=== PATIENT | male | born 1960 | race Caucasian/White ===

== ENCOUNTER 2022-12-07 13:46 | Observation (INO) | payer OTHER, SELFPAY ==
[2022-12-07] VITALS (11 sets, daily range): BP systolic 119–139; BP diastolic 69–89; PULSE 60–69; RESP 14–19; TEMP 36.6; O2SAT 97–100
--- NOTE | ~2022-12-07 | XR_ITS ---
EXAMINATION: XR chest 2V DATE: 12/07/2022 14:32 INDICATION: Chest pain. TECHNIQUE: Frontal and lateral views of the chest were obtained. COMPARISON: Chest 2 views 03/22/2017 FINDINGS: The chest demonstrates clear lungs without pneumonia, pleural effusion, or pneumothorax. Th e heart size is normal. Median sternotomy wires and mediastinal surgical clips are seen, likely from prior coronary artery bypass grafting. There is a left chest wall pacer with leads in the right atriu m and right ventricle. There is mild chronic anterior wedging of multiple thoracic vertebral bodies. IMPRESSION: 1. No acute cardiopulmonary disease. Reviewed, dictated and finalized at location A.
--- NOTE | 2022-12-07 13:46 | ECG_ITS ---
Measurements Intervals [place] Rate: 64 P: 129 WV: 185 QRS: 55 QRSD: 106 T: 124 QT: 387 QTc: 401 Interpretive Statements ELECTRONIC ATRIAL PACEMAKER WITH INHIBITION ANTEROSEPTAL INFARCT, AGE INDETERMINATE BORDERLINE ST-T WAVE ABNORMALITY- HIGH LATERAL LEADS BASELINE ARTIFACT- I, II, III ABNORMAL ECG NO PREVIOUS ECG AVAILABLE FOR COMPARISON Electronically Signed On 12-07-2022 15:12:26 CDT by Irwin Chavez D.O.
[2022-12-07 14:03] LABS: Basophils Absolute Auto 0.1 K/mm3 (0.0-0.1); Basophils Percent Auto 0.7 % (0.2-1.2); Eosinophils Absolute Auto 0.2 K/mm3 (0-0.3); Eosinophils Percent Auto 1.8 % (0-4.4); Hemoglobin 13.8 g/dL (14.0-18.0); Immature Granulocyte Absolute 0.04 K/mm3 (0.00-0.031); Immature Granulocyte Percent A 0.4 % (0-0.5); Lymphocytes Absolute Auto 1.55 K/mm3 (0.9-3.2); Lymphocytes Percent Auto 16.3 % (18.3-44.2); Mean Corpuscular HGB Conc 32.9 g/dl (32-36); Mean Corpuscular Volume 91.3 fl (80-100); Mean Platelet Volume 11.2 fl (7.4-10.4); Monocytes Absolute Auto 0.7 K/mm3 (0.1-0.6); Monocytes Percent Auto 7.7 % (2.6-8.5); Neutrophils Absolute Auto 6.9 K/mm3 (1.3-6.7); Neutrophils Percent Auto 73.1 % (45.5-73.1); Platelet Count Result 158 k/mm3 (150-375); White Blood Count 9.5 K/mm3 (4.5-10.0)
--- NOTE | 2022-12-07 14:13 | ED.CHESTPAIN ---
HPI - Chest Pain General Chief Complaint: Chest Pain Stated Complaint: Chest pain Source: RN notes reviewed History of Present Illness HPI narrative: Patient presents emergency department from work via EMS for chest pain. Patient states that chest pain began earlier today. The pain is located in the midsternal chest and does not radiate. Described as sharp and stabbing in nature and last approximately 2 to 3 seconds and resolves. Patient states that last episode around to the hospital was midsternal lasted for approximately a minute and was pressure associate with shortness of breath states he has had approximately 4 episodes total of the pain today. States he does have a history of previous CABG and is followed by cardiology at [facility]. He denies any fevers or chills shortness of breath abdominal pain nausea or vomiting or any other symptoms of concern Related Data Allergies Allergy/AdvReac Type Severity Reaction Status Date / Time nkda Allergy Mild Uncoded 03/20/10 18:45 Review of Systems Review of Systems: Gen.: Denies fevers or chills Eyes: Denies eye pain or visual change ENT: Denies congestion Respiratory: Denies shortness of breath or cough CV: See HPI GI: Denies abdominal pain nausea, emesis or diarrhea Musculoskeletal: Denies back pain or muscle pain Neuro: Denies numbness, tingling, weakness or focal weakness Skin: Denies rash Except as documented, all other systems reviewed and negative [facility] Past Medical History Medical History (Updated 12/07/22 @ 18:15 by William Estrada DO) Coronary artery disease Surgical History Surgical History (Updated 12/07/22 @ 14:14 by William Estrada DO) Hx of CABG Family History Family History (Updated 05/20/14 @ 07:13 by DOCTOR UNKNOWN) Other Family history of malignant neoplasm Social History Social History Smoking status: Current every day smoker Alcohol intake: current Exam Narrative: APPEARANCE: No acute distress, nontoxic, resting in bed EYES: EOMI HEENT: Normocephalic, atraumatic, OMM RESPIRATORY: No respiratory distress Clear to auscultation bilaterally with no rhonchi wheezing or rales. CARDIOVASCULAR: Regular rate and rhythm without murmurs rubs or gallops. ABDOMINAL: Soft, nontender, nondistended, no rebound or guarding MUSCULOSKELETAl: Moves all extremities. No clubbing, cyanosis or edema. NEURO: Awake and alert. Following commands, speech normal, no focal deficits SKIN:: Warm, dry. No rashes lesions or abrasions PSYCHIATRIC: Normal affect/mood, Course Course Emergency Course: Patient states he had 1 episode of chest pain lasting approximately 1 minute in the ER with shortness of breath : Discussed with cardiology Dr. Ann Discussed with patient about possible discharge versus admission. Patient states he is still just not feeling quite right but denies any chest pain at this time at this time will admit for observation Plan discussed with CLARISA Lyle for Dr. Elizalde agrees with admission at this time Discussed with patient results of workup and diagnosis. Discussed need for follow-up with primary care, proper use of medication, and reasons to return to the emergency department. Patient understands and agrees to current treatment plan Vital Signs Vital signs: Vital Signs Temperature 98 F 12/07/22 13:47 Pulse Rate 69 12/07/22 13:47 Respiratory Rate 18 12/07/22 13:47 Blood Pressure 139/70 12/07/22 13:47 Pulse Oximetry 100 12/07/22 13:47 Oxygen Delivery Room Air 12/07/22 13:47 Temperature 98 F 12/07/22 13:47 Pulse Rate 68 12/07/22 18:01 Respiratory Rate 19 12/07/22 18:01 Blood Pressure 119/89 12/07/22 18:01 Pulse Oximetry 97 12/07/22 17:56 Oxygen Delivery Room Air 12/07/22 13:47 MDM - Chest Pain MDM Narrative Medical decision making narrative: Patient presents emergency department from work via EMS for
[2022-12-07 14:14] LABS: INR 1.1; Prothrombin Time 13.4 Seconds (11.1-14.7)
[2022-12-07 14:15] LABS: Partial Thromboplastin Time 32.7 SECONDS (22.3-36.8)
[2022-12-07 14:17] LABS: Alanine Aminotransferase 28 U/L (6-50); Albumin Level 4.4 g/dL (3.5-5.1); Alkaline Phosphatase 86 U/L (38-126); Anion Gap 8 mmol/L (8-16); Aspartate Amino Transferase 33 U/L (17-59); Bilirubin,Total 0.6 mg/dL (0.2-1.3); Blood Urea Nitrogen 22 mg/dL (9-20); Calcium 8.9 mg/dL (8.4-10.2); Carbon Dioxide 26 mmol/L (22-30); Chloride 104 mmol/L (98-107); Estimated Glomerular Filt Rate > 60; Glucose 100 mg/dL (65-110); Lipase 68 U/L (23-300); Potassium 4.2 mmol/L (3.4-5.0); Sodium 138 mmol/L (137-145)
[2022-12-07 14:28] LABS: Troponin I < 0.012 ng/mL (0.000-0.034)
[2022-12-07 17:17] LABS: Troponin I < 0.012 ng/mL (0.000-0.034)
--- NOTE | 2022-12-07 18:15 | PM.IMHP ---
H&P: HPI History of Present Illness Date/Time: 12/07/22 18:15 Chief Complaint: Chest pain. Narrative: This is a pleasant 62-year-old male with coronary artery disease status post CABG and ischemic cardiomyopathy with an EF as low as 20% status post ICD insertion who presented to the ED via EMS from work for evaluation of chest pain. Patient provides the following history. He had a 5 vessel bypass done in 2020 and he is followed by a tax services intern at [facility], [facility] with [facility]. In fact he saw his tax services intern about 2 weeks ago for a routine checkup and he was scheduled for an echocardiogram in the next coming weeks. He was having no issues at that time. Today while at work he developed what he thought were gas pain in the epigastric and low chest region. Those occurred off and on throughout the morning. About an hour or so prior to arrival during a particularly stressful time at work he then developed a fleeting, sharp and shooting pain in the mid chest region associated with shortness of breath. The symptoms are similar to that he experienced prior to his [place] before the bypass and he came in for evaluation. Vitals were stable on arrival. He was given aspirin 324 mg p.o. times once and a GI cocktail. His symptoms resolved before he came to the ER and have not recurred. Initial troponin was unremarkable. EKG showed borderline ST T-wave abnormalities in the high lateral leads. Given his cardiac history he is being admitted overnight for observation and Cardiology consultation. He has no current complaints. Review of Systems Review of Systems: Twelve systems were reviewed. No fever, chills, or sweats. No recent cold or flu symptoms. He was not doing any heavy lifting while at work today but does note that he was running around quite a bit. No syncope or near syncope. No lower extremity edema or calf pain. No history of venous thromboembolism. He denies abdominal distension, bloating, and belching. No epigastric or abdominal pain. No melena or hematochezia. Except as documented, all other systems were reviewed and are negative. [facility] Past Medical History Medical History (Updated 12/08/22 @ 00:00 by Dariela Chowdhury PA-C) Coronary artery disease Hyperlipidemia Hypertension Ischemic cardiomyopathy Surgical History Surgical History (Updated 12/07/22 @ 23:56 by Dariela Chowdhury PA-C) History of five vessel coronary artery bypass Presence of combination internal cardiac defibrillator (ICD) and pacemaker Family History Family History Father Colon cancer Sibling Stomach cancer Mother Breast cancer Social History Social History Social History: Surrogate medical decision maker: Adriano Chirinos, brother. Code status: Full code. Smoking packs per day: 1.5 Smoking cigarettes per day: 30.0 Years smoked: 42 Smoking pack-years: 63.00 Smoking status: Former smoker Tobacco type: cigarettes Second hand tobacco smoke exposure: Yes Smoking end date: 02/09/21 Alcohol intake: never Alcohol use details: Social alcohol use in moderation. Substance use: never Lack of Transportation: No Lack of Food: Never True Current Housing: I Have Housing Concerned About Future Housing: No Difficulty Paying Gas/Electric Bills: No Difficulty Paying for Meds: No Currently Unemployed: No Education: High School Diploma/GED Difficulty w/ Childcare or Family Care: No Spiritual care concerns: No Meds Home Medications and Allergies Home Medications Medication Instructions Recorded Confirmed Type aspirin 81 mg chewable tablet 81 mg PO QAM 12/08/22 12/08/22 History fluticasone 100 mcg-salmeterol 50 1 inh inhalation DAILY 12/08/22 12/08/22 History mcg/dose blistr powdr for inhalation (Advair Diskus) furosemide 20 mg tablet 40 mg PO QAM 12/08/22 12/08/22 History
[2022-12-07] MEDS: ASPIRIN 81 MG CHEWABLE TABLET 324 MG PO (18:29)
[2022-12-07 20:18] LABS: Troponin I < 0.012 ng/mL (0.000-0.034)
[2022-12-08] VITALS (12 sets, daily range): BP systolic 114–142; BP diastolic 53–86; PULSE 60–70; RESP 16; TEMP 36.2–36.4; O2SAT 95–98; BMI 31.5
--- NOTE | 2022-12-08 00:40 | PC.NURSE ---
This patient, Rafael Chirinos, was admitted to IMU Room 200-01. Patient/family oriented to hospital policies and general routines including ID bracelet, bed and alarms, visiting hours, pain management, procedures, bathroom and other care routines, personal items, smoking policy, room service/diet, and visiting hours. Information on how to activate the Rapid Response Team has been discussed. Patient/Family are encouraged to report perceived risks to care and to ask questions if they do not understand what they are told or what they should do.
[2022-12-08 05:12] LABS: Basophils Percent Auto 0.6 % (0.2-1.2); Eosinophils Absolute Auto 0.2 K/mm3 (0-0.3); Hematocrit 41.8 % (42.0-52.0); Hemoglobin 13.5 g/dL (14.0-18.0); Immature Granulocyte Absolute 0.02 K/mm3 (0.00-0.031); Immature Granulocyte Percent A 0.3 % (0-0.5); Lymphocytes Absolute Auto 1.67 K/mm3 (0.9-3.2); Lymphocytes Percent Auto 26.5 % (18.3-44.2); Mean Corpuscular HGB Conc 32.3 g/dl (32-36); Mean Corpuscular Hemoglobin 29.5 pg (26-34); Mean Corpuscular Volume 91.5 fl (80-100); Mean Platelet Volume 11.5 fl (7.4-10.4); Monocytes Absolute Auto 0.6 K/mm3 (0.1-0.6); Monocytes Percent Auto 9.4 % (2.6-8.5); Neutrophils Absolute Auto 3.8 K/mm3 (1.3-6.7); Neutrophils Percent Auto 60.2 % (45.5-73.1); Platelet Count Result 148 k/mm3 (150-375); Red Blood Count 4.57 M/mm3 (4.6-6.20); White Blood Count 6.3 K/mm3 (4.5-10.0)
[2022-12-08 05:26] LABS: Alanine Aminotransferase 27 U/L (6-50); Alkaline Phosphatase 76 U/L (38-126); Anion Gap 2 mmol/L (8-16); Aspartate Amino Transferase 33 U/L (17-59); Bilirubin,Total 0.8 mg/dL (0.2-1.3); Blood Urea Nitrogen 22 mg/dL (9-20); Calcium 8.9 mg/dL (8.4-10.2); Carbon Dioxide 29 mmol/L (22-30); Chloride 105 mmol/L (98-107); Estimated CRCL calculation 74 ml/min; Estimated Glomerular Filt Rate > 60; Glucose 110 mg/dL (65-110); Potassium 4.2 mmol/L (3.4-5.0); Sodium 136 mmol/L (137-145)
[2022-12-08] MEDS: METOPROLOL SUCCINATE EXT REL 25 MG TABCR PO (08:52)
[2022-12-08] MEDS: SPIRONOLACTONE 25 MG TABLET PO (08:53)
[2022-12-08] MEDS: LOSARTAN POTASSIUM 25 MG TABLET PO (08:53)
[2022-12-08] MEDS: FUROSEMIDE 40 MG TABLET PO (08:53)
[2022-12-08] MEDS: ASPIRIN 81 MG CHEWABLE TABLET PO (08:53)
[2022-12-08] MEDS: FLUTICASONE/SALMETEROL 45-21 MCG INHALER 1 PUFF 2 PUFF INHALATION (10:30)
--- NOTE | 2022-12-08 12:29 | PM.DS ---
DS: Admitting Diagnosis Discharge Date 12/08/22 Admitting Diagnosis Chest pain DS: Discharge Diagnosis Discharge Diagnosis (1) Chest pain: Code(s): R07.9 - Chest pain, unspecified Status: Acute (2) Coronary artery disease: Code(s): I25.10 - Atherosclerotic heart disease of [place] coronary artery without angina pectoris Status: Acute (3) Hyperlipidemia: Code(s): E78.5 - Hyperlipidemia, unspecified Status: Acute (4) Ischemic cardiomyopathy: Code(s): I25.5 - Ischemic cardiomyopathy Status: Acute (5) Hypertension: Code(s): I10 - Essential (primary) hypertension Status: Acute DS: Summary Hospital Course Reason for hospitalization: 62yo male with CAD and iCMP here for chest pain. Please see H&P for details. Hospital Course: Vitals were stable on arrival. He was given aspirin 324 mg and a GI cocktail. His symptoms resolved before he came to the ER and did not recurred. Troponin were negative. CXR clear. EKG showed borderline ST T-wave abnormalities in the high lateral leads. Given his cardiac history he is being admitted overnight for observation. No findings on telemetry. No recurrence of the chest pain. No problems overnight. He described the cecilia as sharp with SOB lasting < 1minute. This pain felt different that when he had his [place]. Reviewed case with youth counselor. He overall did well and was able to be discharged home on 12/08/22. He will follow up with his youth counselor after discharge. Status at Discharge Cognitive/behavioral status at discharge: stable Time Spent with Patient Time attestation: Total time spent providing and/or coordinating discharge services: 35 minutes Time spent: Greater than 30 minutes Exam Narrative: AF 97.6 62 16 97% ra Gen - NARD Chest - CTA bilaterally, nml RR CV - RRR S1/S2. Tels showing no acute dysrhythmias Abd - Soft, NT/ND, Positive BS Ext - No pedal edema Neuro - Alert and oriented. Nonfocal exam. Psych - Nml mood and affect Skin - Warm and dry DS: Data Data Completed and Pending Labs on day of discharge: Labs from last 24 hours 12/08/22 12/08/22 12/07/22 04:34 04:34 19:44 WBC 6.3 RBC 4.57 L Hgb 13.5 L Hct 41.8 L MCV 91.5 MCH 29.5 MCHC 32.3 RDW 13.0 Plt Count 148 L MPV 11.5 H Immature Gran % (Auto) 0.3 Neut % (Auto) 60.2 Lymph % (Auto) 26.5 [place] % (Auto) 9.4 H Eos % (Auto) 3.0 Baso % (Auto) 0.6 Lymph # (Auto) 1.67 [place] # (Auto) 0.6 Eos # (Auto) 0.2 Baso # (Auto) 0.0 Abs Immat Gran (auto) 0.02 Absolute Neuts (auto) 3.8 Absolute Nucleated RBC 0.0 Nucleated RBC % 0.0 PT INR APTT Sodium 136 L Potassium 4.2 Chloride 105 Carbon Dioxide 29 Anion Gap 2 L BUN 22 H Creatinine 1.00 Estim Creat Clear Calc 74 Estimated GFR > 60 Glucose 110 Calcium 8.9 Total Bilirubin 0.8 AST 33 ALT 27 Alkaline Phosphatase 76 Troponin I < 0.012 Total Protein 7.0 Albumin 4.0 Lipase 12/07/22 12/07/22 12/07/22 16:37 13:58 13:58 WBC RBC Hgb Hct MCV MCH MCHC RDW Plt Count MPV Immature Gran % (Auto) Neut % (Auto) Lymph % (Auto) [place] % (Auto) Eos % (Auto) Baso % (Auto) Lymph # (Auto) [place] # (Auto) Eos # (Auto) Baso # (Auto) Abs Immat Gran (auto) Absolute Neuts (auto) Absolute Nucleated RBC Nucleated RBC % PT 13.4 INR 1.1 APTT 32.7 Sodium 138 Potassium 4.2 Chloride 104 Carbon Dioxide 26 Anion Gap 8 BUN 22 H Creatinine 1.10 Estim Creat Clear Calc Not Reportable Estimated GFR > 60 Glucose 100 Calcium 8.9 Total Bilirubin 0.6 AST 33 ALT 28 Alkaline Phosphatase 86 Troponin I < 0.012 < 0.012 Total Protein 7.0 Albumin 4.4 Lipase 68 12/07/22 13:58 WBC 9.5 RBC 4.60 Hgb 13.8 L Hct 4
--- NOTE | 2022-12-08 13:57 | PC.NURSE ---
reviewed discharge paperwork with patient. Removed peripheral IV access. All questions were answered. Patient awaiting ride home.
--- NOTE | 2022-12-08 14:22 | PC.NURSE ---
pt wheeled down to family via staff escort at 1408.
== END 2022-12-08 14:05 | disposition home or self-care (01) ==
LOC: ANHED 18:15 → ANHIMU 12-08 12:48
PROVIDERS: Admitting Provider Family Medicine; Emergency Provider Emergency Medicine; PCP Internal Medicine; Visit Provider Internal Medicine
DX: R07.9 Chest pain, unspecified (principal); Z95.1 Presence of aortocoronary bypass graft; I25.10 Atherosclerotic heart disease of native coronary artery without angina pectoris; E78.5 Hyperlipidemia, unspecified; I25.5 Ischemic cardiomyopathy; I10 Essential (primary) hypertension; Z95.810 Presence of automatic (implantable) cardiac defibrillator; R94.31 Abnormal electrocardiogram [ECG] [EKG]; Z87.891 Personal history of nicotine dependence; F10.90 Alcohol use, unspecified, uncomplicated; Z79.82 Long term (current) use of aspirin; Z79.51 Long term (current) use of inhaled steroids; Z79.899 Other long term (current) drug therapy
CPT/HCPCS: 36415; 71046; 80053; 83690; 84484; 85025; 85610; 85730; 93005; 94640; 99285; A9270; G0378